=== PATIENT | male | born 1975 | race Caucasian/White ===

== ENCOUNTER 2016-12-28 22:44 | Emergency (ER) | payer OTHER ==
[~2016-12-28] VITALS: Ht 182.9 cm; Wt 82.8 kg
[~2016-12-28 22:44] MED LIST: AUGMENTIN875 MG PO; FLEXERIL10 MG PO; NAPROSYN500 MG PO; PERCOCET 5/31 TABLET PO; PERIDEX1 ML MM; TRAMADOL HCL50 MG PO; ULTRAM50 MG PO; [UNRECOGNIZED DRUG - OTHER] PO
[2016-12-28 23:35] LABS: HEMATOCRIT 49.9 % (38.0-50.0); MCH 30.2 PG (29.0-34.0); MCHC 35.1 G/DL (30.0-36.0); MEAN PLAT.VOLUME 9.6 uM^3 (9.0-12.4); PLATELET COUNT 301 K/uL (156-360); RBC DIS.WIDTH-CV 12.6 % (11.8-14.6); RBC DIS.WIDTH-SD 39.2 % (39-53); WHITE BLOOD COUNT 8.7 K/uL (4.1-10.2)
[2016-12-28 23:47] LABS: CHLORIDE 108 mEq/L (99-109); D-DIMER ELISA < 150.00 ng/mLDDU (<230); POTASSIUM 3.9 mEq/L (3.7-5.4); SODIUM 141 mEq/L (136-147)
[2016-12-28 23:49] LABS: GLUCOSE 100 mg/dL (70-99)
[2016-12-28 23:50] LABS: ANION GAP 10 MEQ/L (2-14)
[2016-12-28 23:52] LABS: SERUM ETHYL ALCOHOL < 10 mg/dL
[2016-12-28 23:53] LABS: GFR ESTIMATE (CALCULATED) > 59 mL/min/
[2016-12-28 23:54] LABS: UREA NITROGEN (BUN) 9 mg/dL (9-23)
[2016-12-28 23:56] LABS: TROP-I INTERPRETATION NEGATIVE; TROPONIN-I < 0.01 ng/mL (0.0-0.30)
[2016-12-29 02:28] LABS: TROP-I INTERPRETATION NEGATIVE; TROPONIN-I < 0.01 ng/mL (0.0-0.30)
[2016-12-29 02:47] VITALS: BP 96/71
== END 2016-12-29 02:47 | disposition home or self-care (01) ==
LOC: EME 22:44
PROVIDERS: Emergency Medicine
DX: R07.89 Other chest pain (principal); R06.00 Dyspnea, unspecified; M79.602 Pain in left arm; Z82.49 Family history of ischemic heart disease and other diseases of the circulatory system; F17.200 Nicotine dependence, unspecified, uncomplicated
CPT/HCPCS: 71020; 80048; 84484; 85027; 85379; 93005; 99281; 99285; G0480